=== PATIENT | female | born 1985 | race Caucasian/White ===

== ENCOUNTER 2021-08-19 05:31 | Emergency (ER) | payer OTHER ==
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
[2021-08-19 06:03] LABS: BLOOD UREA NITROGEN,BUN 8 mg/dL (7.0-18.0); CARBON DIOXIDE,CO2 22.4 mmol/L (21.0-32.0); CHLORIDE,CL 104 mmol/L (98-107); GLUCOSE RANDOM 121 mg/dL (74-106); POTASSIUM,K 3.7 mmol/L (3.5-5.1); SODIUM,NA 141 mmol/L (136-145)
[2021-08-19] MEDS ORDERED: Ketorolac 30 MG/ML SDV IVPUSH ONE (06:08)
--- NOTE | 2021-08-19 06:10 | PCM.EKG ---
#1 Interpretation EKG Date: 08/19/21 Time: 05:56 Rhythm: NSR Rate (Beats/Min): 92 [place]: Normal P-Wave: Present QRS: Normal ST-T: Normal QT: Normal Comparison: NA - No Prior EKG EKG Interpretation Comments: Sinus Rhythm
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
== END 2021-08-19 07:30 ==
LOC: MW.ED 05:31
DX: S20.211A Contusion of right front wall of thorax, initial encounter (principal); S09.90XA Unspecified injury of head, initial encounter; F10.129 Alcohol abuse with intoxication, unspecified; Z20.822 Contact with and (suspected) exposure to COVID-19; V89.2XXA Person injured in unspecified motor-vehicle accident, traffic, initial encounter; Y92.410 Unspecified street and highway as the place of occurrence of the external cause; Y90.8 Blood alcohol level of 240 mg/100 ml or more
CPT/HCPCS: 36415; 70450; 71045; 72125; 72170; 80053; 80307; 84703; 85025; 85610; 87635; 93005; 96374; 99285; J1885; U0002